=== PATIENT | male | born 1970 | race Hispanic/Latino ===

== ENCOUNTER 2021-08-24 16:16 | Emergency (ER) | payer SELFPAY ==
[2021-08-24 16:53] LABS: #Basophils 0.2 10x3/uL (0.0-0.2); #Eosinphils 0.1 10x3/uL (0.0-0.5); #Monocytes 0.6 10x3/uL (0.0-1.1); #Neutrophils 5.1 10x3/uL (1.5-8.4); %Eosinophils 1.2 % (0.0-6.0); %Lymphocytes 26.2 % (18.0-47.0); %Monocytes 7.5 % (0.0-10.0); %Neutrophils 62.6 % (40.0-75.0); Hemoglobin 8.9 g/dL (13.5-17.5); Mean Corpuscular HGB CONC 32.4 g/dL (32.0-36.0); Mean Corpuscular Hemoglobin 33.6 pg (27.0-33.0); Mean Corpuscular Volume 103.8 fl (81.2-95.1); Mean Platelet Volume 9.1 fl (7.4-10.4); Platelet Count 277 10x3/uL (150-450); RBC Distribution Width 15.5 % (11.5-14.5); Red Blood Cell (RBC) Count 2.65 10x6/uL (4.32-5.72); White Blood Cell (WBC) Count 8.1 10x3/uL (3.5-10.5)
[2021-08-24 17:06] LABS: ALT (SGPT) 30 U/L (8-55); AST (SGOT) 73 U/L (5-34); Albumin 3.1 g/dL (3.5-5.0); Alkaline Phosphatase 179 U/L (40-110); Anion Gap 15 mmol/L (10-20); BUN (Urea Nitrogen) 12 mg/dL (8.4-25.7); Bilirubin, Total 1.7 mg/dL (0.2-1.2); Calc. Creatinine Clearance 0 mL/min (70-130); Calcium 8.2 mg/dL (7.8-10.44); Carbon Dioxide 20 mmol/L (22-29); Chloride 109 mmol/L (98-107); Globulin 4.7 g/dL (2.4-3.5); Glucose 115 mg/dL (70-105); Potassium 4.4 mmol/L (3.5-5.1); Protein, Total 7.8 g/dL (6.0-8.3); Sodium 140 mmol/L (136-145)
== END 2021-08-24 19:24 | disposition home or self-care (01) ==
LOC: CSHERS 16:16
DX: R60.0 Localized edema (principal)
CPT/HCPCS: 71045; 80053; 83880; 85025

== ENCOUNTER 2021-09-13 20:19 | Inpatient (IN) | payer SELFPAY ==
[2021-09-13 20:58] LABS: #Basophils 0.2 10x3/uL (0.0-0.2); #Monocytes 1.2 10x3/uL (0.0-1.1); #Neutrophils 8.6 10x3/uL (1.5-8.4); %Basophils 1.7 % (0.0-2.0); %Eosinophils 0.1 % (0.0-6.0); %Monocytes 10.2 % (0.0-10.0); %Neutrophils 71.4 % (40.0-75.0); Hemoglobin 7.6 g/dL (13.5-17.5); Mean Corpuscular HGB CONC 33.3 g/dL (32.0-36.0); Mean Corpuscular Hemoglobin 31.1 pg (27.0-33.0); Mean Corpuscular Volume 93.4 fl (81.2-95.1); Mean Platelet Volume 10.5 fl (7.4-10.4); Platelet Count 245 10x3/uL (150-450); RBC Distribution Width 16.1 % (11.5-14.5); Red Blood Cell (RBC) Count 2.44 10x6/uL (4.32-5.72)
[2021-09-13] MEDS ORDERED: Ondansetron PF 4 MG/2 ML Vial ONE (21:01)
[2021-09-13 21:10] LABS: ALT (SGPT) 21 U/L (8-55); AST (SGOT) 57 U/L (5-34); Albumin 3.2 g/dL (3.5-5.0); Alkaline Phosphatase 88 U/L (40-110); Anion Gap 18 mmol/L (10-20); BUN (Urea Nitrogen) 61 mg/dL (8.4-25.7); Bilirubin, Total 1.7 mg/dL (0.2-1.2); Calc. Creatinine Clearance 0 mL/min (70-130); Calcium 9.1 mg/dL (7.8-10.44); Carbon Dioxide 22 mmol/L (22-29); Chloride 97 mmol/L (98-107); Estimated GFR 62; Globulin 4.4 g/dL (2.4-3.5); Glucose 125 mg/dL (70-105); Lipase 30 U/L (8-78); Potassium 5.2 mmol/L (3.5-5.1); Protein, Total 7.6 g/dL (6.0-8.3); Sodium 132 mmol/L (136-145)
[2021-09-13] MEDS ORDERED: Pantoprazole 40 MG VIAL ONE ×2 (22:25→22:52)
[2021-09-13 22:26] LABS: INR-International Normal Ratio 1.4; PTT 27.1 sec (22.0-33.0); Prothrombin Time 15.4 sec (9.5-12.1)
[2021-09-13] MEDS ORDERED: Ondansetron PF 4 MG/2 ML Vial IVP PRN (22:46)
[2021-09-13] MEDS ORDERED: Lorazepam 2 MG/ML VIAL SLOW IVP PRN (22:52)
[2021-09-13] MEDS ORDERED: Octreotide Acetate 1,250 MCG in Sodium Chloride 0.9% 250 ML 250 ML IVPB SCH (23:00)
[2021-09-13] MEDS ORDERED: Pantoprazole 80 MG in Sodium Chloride 0.9% 100 ML IVPB SCH (23:00)
[2021-09-13 23:31] LABS: Iron 61 ug/dL (65-175); Iron Binding Capacity, Total 299 mcg/dL (261-462)
[2021-09-13 23:32] LABS: Ferritin 67.04 ng/mL (22-322)
[2021-09-13] MEDS: Thiamine HCl 200 MG/2 ML VIAL SLOW IVP SCH (23:50)
[2021-09-13] MEDS: Sodium Chloride 0.9% 1,000 ML IV SCH (23:50)
[2021-09-14] MEDS: Acetaminophen 325 MG TAB PO PRN (00:01)
[2021-09-14] MEDS: cefTRIAXone\\ROCEPHIN 2 GM in Sodium Chloride 0.9% 100 ML IVPB SCH (00:13)
[2021-09-14 00:34] VITALS: BMI 26.6
[2021-09-14 07:01] LABS: Anion Gap 14 mmol/L (10-20); BUN (Urea Nitrogen) 60 mg/dL (8.4-25.7); Calc. Creatinine Clearance 79 mL/min (70-130); Carbon Dioxide 23 mmol/L (22-29); Chloride 103 mmol/L (98-107); Estimated GFR 68; Glucose 123 mg/dL (70-105); Sodium 135 mmol/L (136-145)
[2021-09-14 07:13] LABS: Hemoglobin 6.7 g/dL (13.5-17.5); MDiff Complete? YES; Mean Corpuscular HGB CONC 33.7 g/dL (32.0-36.0); Mean Corpuscular Hemoglobin 30.7 pg (27.0-33.0); Mean Corpuscular Volume 91.3 fl (81.2-95.1); Mean Platelet Volume 10.3 fl (7.4-10.4); Platelet Count 176 10x3/uL (150-450); RBC Distribution Width 17.5 % (11.5-14.5); Red Blood Cell (RBC) Count 2.18 10x6/uL (4.32-5.72); White Blood Cell (WBC) Count 11.8 10x3/uL (3.5-10.5)
[2021-09-14] MEDS ORDERED: Octreotide Acetate 1,250 MCG in Sodium Chloride 0.9% 250 ML 250 ML IVPB SCH (07:15)
[2021-09-14 07:16] LABS: Band 2 % (5-11); Lymphocytes 25 % (21-51); Monocytes 6 % (0-10); Neutrophil 66 % (42-75)
[2021-09-14 07:17] LABS: Platelet Morphology Comment Appears Adequate
[2021-09-14 07:18] LABS: RBC Morphology Normal
[2021-09-14 09:40] LABS: #Basophils 0.2 10x3/uL (0.0-0.2); #Eosinphils 0.2 10x3/uL (0.0-0.5); #Monocytes 1.1 10x3/uL (0.0-1.1); #Neutrophils 6.3 10x3/uL (1.5-8.4); %Basophils 1.5 % (0.0-2.0); %Eosinophils 1.5 % (0.0-6.0); %Lymphocytes 23.4 % (18.0-47.0); %Monocytes 11.1 % (0.0-10.0); %Neutrophils 62.1 % (40.0-75.0); Hemoglobin 6.2 g/dL (13.5-17.5); Mean Corpuscular HGB CONC 32.6 g/dL (32.0-36.0); Mean Corpuscular Hemoglobin 30.1 pg (27.0-33.0); Mean Corpuscular Volume 92.2 fl (81.2-95.1); Mean Platelet Volume 10.2 fl (7.4-10.4); Platelet Count 157 10x3/uL (150-450); RBC Distribution Width 17.6 % (11.5-14.5); Red Blood Cell (RBC) Count 2.06 10x6/uL (4.32-5.72); White Blood Cell (WBC) Count 10.1 10x3/uL (3.5-10.5)
[2021-09-14] MEDS ORDERED: Lorazepam 1 MG TAB PO PRN (12:39)
[2021-09-14] MEDS ORDERED: Ondansetron ODT 4 MG TAB PO PRN (12:39)
[2021-09-14] MEDS ORDERED: Electrolyte Replacement Protocol 1 EACH FS SCH (12:45)
[2021-09-14 13:37] LABS: SARS-CoV-2 NAA Rapid Test Not Detected (NotDetected)
[2021-09-14] MEDS: Sodium Chloride 0.9% 1,000 ML IV SCH (14:01)
[2021-09-14] MEDS ORDERED: PROPOFOL 20 ML ONE (14:19)
[2021-09-14] MEDS ORDERED: Lidocaine 1% PF 5 ML VIAL ONE (14:19)
[2021-09-14] MEDS ORDERED: Propofol 1,000 MG/100 ML VIAL IV ONE (14:30)
[2021-09-14] MEDS: Lorazepam 1 MG TAB PO SCH ×2 (16:16→19:59)
[2021-09-14 16:41] LABS: Mean Corpuscular HGB CONC 33.1 g/dL (32.0-36.0); Mean Corpuscular Hemoglobin 30.7 pg (27.0-33.0); Mean Corpuscular Volume 92.7 fl (81.2-95.1); Mean Platelet Volume 10.6 fl (7.4-10.4); Platelet Count 175 10x3/uL (150-450); RBC Distribution Width 17.4 % (11.5-14.5); Red Blood Cell (RBC) Count 2.61 10x6/uL (4.32-5.72)
[2021-09-14 16:42] LABS: MDiff Complete? YES; Manual Diff?? YES
[2021-09-14 17:50] LABS: Monocytes 9 % (0-10)
[2021-09-14 17:51] LABS: Eosinophils 3 % (0-10)
[2021-09-14 17:53] LABS: Neutrophil 60 % (42-75)
[2021-09-14 17:54] LABS: Lymphocytes 25 % (21-51); Reactive Lymphocytes 2 % (0-10)
[2021-09-14 17:55] LABS: Platelet Morphology Comment Appears Adequate
[2021-09-15] MEDS: Thiamine HCl 200 MG/2 ML VIAL SLOW IVP SCH ×2 (00:37→23:19)
[2021-09-15] MEDS: cefTRIAXone\\ROCEPHIN 2 GM in Sodium Chloride 0.9% 100 ML IVPB SCH ×2 (00:39→23:18)
[2021-09-15] MEDS: Lorazepam 1 MG TAB PO SCH ×4 (00:49→19:44)
[2021-09-15] MEDS: Sodium Chloride 0.9% 1,000 ML IV SCH ×2 (00:50→14:32)
[2021-09-15 01:44] LABS: Hemoglobin 8.4 g/dL (13.5-17.5); Mean Corpuscular HGB CONC 35.1 g/dL (32.0-36.0); Mean Corpuscular Hemoglobin 31.8 pg (27.0-33.0); Mean Corpuscular Volume 90.5 fl (81.2-95.1); Mean Platelet Volume 10.1 fl (7.4-10.4); Platelet Count 130 10x3/uL (150-450); RBC Distribution Width 16.9 % (11.5-14.5); Red Blood Cell (RBC) Count 2.64 10x6/uL (4.32-5.72); White Blood Cell (WBC) Count 6.2 10x3/uL (3.5-10.5)
[2021-09-15 02:03] LABS: MDiff Complete? YES
[2021-09-15 02:06] LABS: Band 3 % (5-11); Eosinophils 8 % (0-10); Lymphocytes 35 % (21-51); Monocytes 7 % (0-10); Neutrophil 47 % (42-75)
[2021-09-15 02:07] LABS: Platelet Morphology Comment Appears Adequate
[2021-09-15 05:01] LABS: Hemoglobin 8.4 g/dL (13.5-17.5)
[2021-09-15 05:40] LABS: Iron 142 ug/dL (65-175); Iron Binding Capacity, Total 240 mcg/dL (261-462); Magnesium 1.8 mg/dL (1.6-2.6); Phosphorus 2.7 mg/dL (2.3-4.7); Potassium 4.3 mmol/L (3.5-5.1)
[2021-09-15] MEDS ORDERED: Magnesium 2 GM/50 ML(in water) 2 GM in Premix Bag 1 BAG IVPB SCH (06:00)
[2021-09-15] MEDS: Multivit, Therapeutic 1 TAB PO SCH (08:33)
[2021-09-15] MEDS: Folic Acid 1 MG TAB PO SCH (08:33)
[2021-09-15] MEDS ORDERED: Lorazepam 1 MG TAB PO PRN (12:39)
[2021-09-15 13:19] LABS: HBCM Index 0.14 S/CO (0-0.79); HBSAg Index 0.26 S/CO (0-0.99); Hep A IgM AB Non-Reactive (NonReactive); Hep A IgM S/CO 0.31 S/CO (0-0.79); Hep B Surf Ag Non-Reactive S/CO (NonReactive); Hep C IgG Ab Non-Reactive (NonReactive); Hepatitis B Core IgM Abs Non-Reactive (NonReactive)
[2021-09-15] MEDS ORDERED: GoLYTELY 4,000 ml Bottle PO SCH (15:30)
[2021-09-15 16:38] LABS: Hemoglobin 8.9 g/dL (13.5-17.5)
[2021-09-16] MEDS: Lorazepam 1 MG TAB PO SCH ×3 (00:50→05:55)
[2021-09-16] MEDS: Sodium Chloride 0.9% 1,000 ML IV SCH (04:47)
[2021-09-16] MEDS: Acetaminophen 325 MG TAB PO PRN (05:55)
[2021-09-16 07:19] LABS: Hep C Index 0.15 S/CO (0-0.79)
[2021-09-16] MEDS: Multivit, Therapeutic 1 TAB PO SCH (08:30)
[2021-09-16] MEDS: Folic Acid 1 MG TAB PO SCH (08:30)
[2021-09-16] MEDS ORDERED: Lorazepam 1 MG TAB PO PRN (12:39)
[2021-09-16] MEDS: Lorazepam 0.5 MG TAB PO SCH ×2 (12:45→16:31)
[2021-09-16] MEDS ORDERED: PROPOFOL 20 ML ONE ×2 (13:22→14:06)
[2021-09-16 17:17] VITALS: BP 137/65; TEMP 97.6
[2021-09-17] MEDS ORDERED: Lorazepam 0.5 MG TAB PO PRN (12:39)
[2021-09-19 15:17] LABS: ANA Symphony (Qualitative) Negative (Negative); ANA Symphony (Quantitative) 0.5 Ratio (< 0.7 Negative); EliA Vaculitis New Method **** NEW METHOD ****; Mitochondrial Ab 1.4 U/mL (<4 Negative); dsDNA IgG Antibody 1.7 IU/mL (<10 Negative)
== END 2021-09-16 19:25 | disposition home or self-care (01) | DRG 442 ==
LOC: CSHERS 20:19 → CSHTELE 23:26
PROVIDERS: ADMIT Student in an Organized Health Care Education/Training Program; ATTEND Internal Medicine
PROC: 0DB78ZX Excision of Stomach, Pylorus, Via Natural or Artificial Opening Endoscopic, Diagnostic (ICD-10-PCS; principal; 2021-09-14)
PROC: 30233N1 Transfusion of Nonautologous Red Blood Cells into Peripheral Vein, Percutaneous Approach (ICD-10-PCS; 2021-09-14)
PROC: 0DJD8ZZ Inspection of Lower Intestinal Tract, Via Natural or Artificial Opening Endoscopic (ICD-10-PCS; 2021-09-16)
DX: K76.6 Portal hypertension (principal); D62 Acute posthemorrhagic anemia; E87.1 Hypo-osmolality and hyponatremia; N17.9 Acute kidney failure, unspecified; R65.10 Systemic inflammatory response syndrome (SIRS) of non-infectious origin without acute organ dysfunction; K92.0 Hematemesis; E87.5 Hyperkalemia; F10.20 Alcohol dependence, uncomplicated; K31.89 Other diseases of stomach and duodenum; E88.09 Other disorders of plasma-protein metabolism, not elsewhere classified; Z20.822 Contact with and (suspected) exposure to COVID-19; Z87.891 Personal history of nicotine dependence
CPT/HCPCS: 36415; 36430; 71045; 76700; 80048; 80053; 80074; 82105; 82390; 82607; 82728; 82746; 83516; 83540; 83550; 83690; 83735; 83880; 84100; 84132; 84484; 85014; 85018; 85025; 85610; 85730; 86015; 86038; 86225; 86850; 86900; 86901; 88305; 88342; 93005; 93306; 96374; 96375; 96376; C9113; J0696; J2354; J2405; J2704; J3411; J3475; J3490; J7050; P9016; U0002

== ENCOUNTER 2021-12-26 10:49 | Emergency (ER) | payer SELFPAY | END 2021-12-26 11:57 | disposition home or self-care (01) | LOC: CSHERS 10:49 | DX: S83.92XA Sprain of unspecified site of left knee, initial encounter (principal); W18.30XA Fall on same level, unspecified, initial encounter ==

== ENCOUNTER 2022-03-14 07:27 | Emergency (ER) | payer SELFPAY | END 2022-03-14 08:02 | disposition home or self-care (01) | LOC: CSHERS 07:27 | DX: M25.562 Pain in left knee (principal); M25.462 Effusion, left knee | CPT/HCPCS: 99283 ==

== ENCOUNTER 2022-10-06 07:41 | Inpatient (IN) | payer SELFPAY ==
[2022-10-06] MEDS ORDERED: Ondansetron PF 4 MG/2 ML Vial ONE ×2 (08:40→08:50)
[2022-10-06] MEDS ORDERED: Pantoprazole 40 MG VIAL ONE (08:40)
[2022-10-06] MEDS ORDERED: Famotidine/PF 20 mg/2ml Vial ONE (08:41)
[2022-10-06] MEDS ORDERED: Octreotide Acetate 50 MCG/ML AMP ONE (08:46)
[2022-10-06] MEDS ORDERED: Iopamidol 300 61% 100 ML VIAL FS ONE (09:11)
[2022-10-06 09:25] LABS: Hemoglobin 8.3 g/dL (13.5-17.5); Mean Corpuscular HGB CONC 31.8 g/dL (32.0-36.0); Mean Corpuscular Hemoglobin 25.2 pg (27.0-33.0); Mean Corpuscular Volume 79.1 fl (81.2-95.1); Mean Platelet Volume 10.5 fl (7.4-10.4); Platelet Count 175 10x3/uL (150-450); RBC Distribution Width 19.6 % (11.5-14.5); White Blood Cell (WBC) Count 4.4 10x3/uL (3.5-10.5)
[2022-10-06 09:27] LABS: ALT (SGPT) 26 U/L (8-55); AST (SGOT) 70 U/L (5-34); Albumin 3.6 g/dL (3.5-5.0); Alkaline Phosphatase 67 U/L (40-110); Anion Gap 17 mmol/L (10-20); BUN (Urea Nitrogen) 29 mg/dL (8.4-25.7); Bilirubin, Total 1.4 mg/dL (0.2-1.2); Calc. Creatinine Clearance 0 mL/min (70-130); Calcium 8.2 mg/dL (7.8-10.44); Carbon Dioxide 21 mmol/L (22-29); Chloride 100 mmol/L (98-107); Estimated GFR 105; Globulin 3.9 g/dL (2.4-3.5); Glucose 111 mg/dL (70-105); Lipase 146 U/L (8-78); Potassium 4.4 mmol/L (3.5-5.1); Protein, Total 7.5 g/dL (6.0-8.3); Sodium 134 mmol/L (136-145)
[2022-10-06 09:29] LABS: MDiff Complete? YES
[2022-10-06] MEDS ORDERED: Promethazine HCl 25 MG, Admixture Fee 1 EACH in Sodium Chloride 0.9% 50 ML IVPB SCH (09:30)
[2022-10-06 09:58] LABS: Eosinophils 3 % (0-10); Lymphocytes 28 % (21-51); Monocytes 16 % (0-10); Neutrophil 50 % (42-75)
[2022-10-06 10:00] LABS: Hypochromia SLIGHT = 6-15 cells (100X) (0-5/hpf); Platelet Adequacy Comment Appears Adequate
[2022-10-06 10:01] LABS: Microcytosis SLIGHT = 6-15 cells (100X) (0-5/hpf)
[2022-10-06] MEDS ORDERED: Acetaminophen 650 MG Suppository PR PRN (11:32)
[2022-10-06] MEDS ORDERED: Ondansetron PF 4 MG/2 ML Vial IVP PRN (11:32)
[2022-10-06] MEDS ORDERED: Ondansetron ODT 4 MG TAB PO PRN (11:32)
[2022-10-06] MEDS ORDERED: Acetaminophen 325 MG TAB PO PRN (11:32)
[2022-10-06] MEDS ORDERED: Octreotide Acetate 1,250 MCG in Sodium Chloride 0.9% 250 ML 250 ML IVPB SCH (11:45)
[2022-10-06 11:50] LABS: INR-International Normal Ratio 1.4; PTT 30.2 sec (22.0-33.0); Prothrombin Time 15.2 sec (9.5-12.1)
[2022-10-06] MEDS ORDERED: Lorazepam 1 MG TAB PO PRN (12:24)
[2022-10-06] MEDS ORDERED: Lorazepam 2 MG/ML VIAL IM PRN (12:24)
[2022-10-06] MEDS ORDERED: Electrolyte Replacement Protocol 1 EACH FS SCH (12:30)
[2022-10-06] MEDS: Sodium Chloride 0.9% 1,000 ML IV SCH ×2 (13:00→18:10)
[2022-10-06] MEDS ORDERED: Thiamine HCl 200 MG/2 ML VIAL ONE (13:26)
[2022-10-06] MEDS: Thiamine HCl 200 MG/2 ML VIAL SLOW IVP SCH (13:30)
[2022-10-06 14:51] LABS: Hemoglobin 7.8 g/dL (13.5-17.5)
[2022-10-06] MEDS ORDERED: PROPOFOL 20 ML ONE (15:31)
[2022-10-06] MEDS ORDERED: Succinylcholine 200 MG/10 ml SYRINGE FS ONE (15:31)
[2022-10-06] MEDS ORDERED: PHENYLEPHRINE-NS 100 MCG/ML 10 ML SYRINGE ONE (16:05)
[2022-10-06 17:29] VITALS: BMI 27.7
[2022-10-06 19:54] LABS: Hemoglobin 8.4 g/dL (13.5-17.5)
[2022-10-06] MEDS: Pantoprazole 80 MG, Admixture Fee 1 EACH in Sodium Chloride 0.9% 100 ML IVPB SCH (20:29)
[2022-10-07 02:38] LABS: #Basophils 0.1 10x3/uL (0.0-0.2); #Eosinphils 0.2 10x3/uL (0.0-0.5); #Monocytes 0.7 10x3/uL (0.0-1.1); #Neutrophils 3.6 10x3/uL (1.5-8.4); %Basophils 1.8 % (0.0-2.0); %Eosinophils 2.4 % (0.0-6.0); %Lymphocytes 26.5 % (18.0-47.0); %Monocytes 11.6 % (0.0-10.0); %Neutrophils 57.5 % (40.0-75.0); Hemoglobin 7.7 g/dL (13.5-17.5); Mean Corpuscular HGB CONC 32.2 g/dL (32.0-36.0); Mean Corpuscular Hemoglobin 25.9 pg (27.0-33.0); Mean Corpuscular Volume 80.5 fl (81.2-95.1); Mean Platelet Volume 9.7 fl (7.4-10.4); Platelet Count 121 10x3/uL (150-450); RBC Distribution Width 18.8 % (11.5-14.5); Red Blood Cell (RBC) Count 2.97 10x6/uL (4.32-5.72); White Blood Cell (WBC) Count 6.2 10x3/uL (3.5-10.5)
[2022-10-07 02:48] LABS: Anion Gap 14 mmol/L (10-20); BUN (Urea Nitrogen) 26 mg/dL (8.4-25.7); Calc. Creatinine Clearance 113 mL/min (70-130); Calcium 7.8 mg/dL (7.8-10.44); Carbon Dioxide 22 mmol/L (22-29); Chloride 108 mmol/L (98-107); Estimated GFR 100; Glucose 118 mg/dL (70-105); Potassium 4.2 mmol/L (3.5-5.1); Sodium 140 mmol/L (136-145)
[2022-10-07] MEDS: Sodium Chloride 0.9% 1,000 ML IV SCH ×2 (04:57→21:07)
[2022-10-07] MEDS: Pantoprazole 80 MG, Admixture Fee 1 EACH in Sodium Chloride 0.9% 100 ML IVPB SCH (05:24)
[2022-10-07] MEDS ORDERED: Metoclopramide HCl 10 MG/2 ML VIAL IVP PRN (07:39)
[2022-10-07 08:23] LABS: Hemoglobin 7.7 g/dL (13.5-17.5)
[2022-10-07] MEDS: Folic Acid 1 MG TAB PO SCH (08:34)
[2022-10-07] MEDS: Thiamine HCl 200 MG/2 ML VIAL SLOW IVP SCH (11:20)
[2022-10-07] MEDS ORDERED: Lorazepam 1 MG TAB PO PRN (12:24)
[2022-10-07 14:28] LABS: Hemoglobin 7.8 g/dL (13.5-17.5)
[2022-10-07 20:42] LABS: Hemoglobin 7.8 g/dL (13.5-17.5)
[2022-10-07] MEDS: Pantoprazole 40 MG VIAL IVP SCH (21:08)
[2022-10-08 03:52] LABS: Anion Gap 14 mmol/L (10-20); BUN (Urea Nitrogen) 18 mg/dL (8.4-25.7); Calc. Creatinine Clearance 120 mL/min (70-130); Calcium 7.7 mg/dL (7.8-10.44); Carbon Dioxide 20 mmol/L (22-29); Chloride 106 mmol/L (98-107); Estimated GFR 104; Glucose 91 mg/dL (70-105); Potassium 3.2 mmol/L (3.5-5.1); Sodium 137 mmol/L (136-145)
[2022-10-08 03:57] LABS: #Basophils 0.1 10x3/uL (0.0-0.2); #Eosinphils 0.5 10x3/uL (0.0-0.5); #Monocytes 0.6 10x3/uL (0.0-1.1); #Neutrophils 2.8 10x3/uL (1.5-8.4); %Basophils 1.6 % (0.0-2.0); %Eosinophils 8.8 % (0.0-6.0); %Lymphocytes 22.5 % (18.0-47.0); %Monocytes 11.1 % (0.0-10.0); %Neutrophils 55.4 % (40.0-75.0); Hemoglobin 7.2 g/dL (13.5-17.5); Mean Corpuscular HGB CONC 31.4 g/dL (32.0-36.0); Mean Corpuscular Hemoglobin 26.1 pg (27.0-33.0); Mean Platelet Volume 10.6 fl (7.4-10.4); Platelet Count 107 10x3/uL (150-450); RBC Distribution Width 18.9 % (11.5-14.5); Red Blood Cell (RBC) Count 2.76 10x6/uL (4.32-5.72); White Blood Cell (WBC) Count 5.1 10x3/uL (3.5-10.5)
[2022-10-08] MEDS: Sodium Chloride 0.9% 1,000 ML IV SCH (04:00)
[2022-10-08] MEDS: Folic Acid 1 MG TAB PO SCH (08:00)
[2022-10-08] MEDS: Pantoprazole 40 MG VIAL IVP SCH (08:00)
[2022-10-08] MEDS ORDERED: Potassium Chloride 20 MEQ TAB PO SCH ×2 (08:00→09:00)
[2022-10-08] MEDS ORDERED: Lorazepam 1 MG TAB PO PRN (12:24)
[2022-10-08 13:07] VITALS: BP 158/78; TEMP 98.2
[2022-10-08] MEDS: Thiamine HCl 200 MG/2 ML VIAL SLOW IVP SCH (13:08)
[2022-10-09] MEDS ORDERED: Lorazepam 0.5 MG TAB PO PRN (12:24)
[2022-10-09] MEDS ORDERED: Thiamine 100 MG TAB PO SCH (12:30)
== END 2022-10-08 13:30 | disposition home or self-care (01) | DRG 369 ==
LOC: CSHERS 07:41 → CSHERHOLD 11:29 → CSHICU 16:04 → CSHTELE 10-08 09:07
PROVIDERS: ADMIT Family Medicine; ATTEND Internal Medicine
PROC: 30233N1 Transfusion of Nonautologous Red Blood Cells into Peripheral Vein, Percutaneous Approach (ICD-10-PCS; principal; 2022-10-06)
PROC: 0W3P8ZZ Control Bleeding in Gastrointestinal Tract, Via Natural or Artificial Opening Endoscopic (ICD-10-PCS; 2022-10-06)
DX: K22.6 Gastro-esophageal laceration-hemorrhage syndrome (principal); K76.6 Portal hypertension; N28.9 Disorder of kidney and ureter, unspecified; D64.9 Anemia, unspecified; K70.30 Alcoholic cirrhosis of liver without ascites; D69.6 Thrombocytopenia, unspecified; F10.10 Alcohol abuse, uncomplicated; Z79.899 Other long term (current) drug therapy; F17.210 Nicotine dependence, cigarettes, uncomplicated; F41.9 Anxiety disorder, unspecified; K31.89 Other diseases of stomach and duodenum; I85.10 Secondary esophageal varices without bleeding
CPT/HCPCS: 36415; 36416; 36430; 74177; 80048; 80053; 83690; 85025; 85610; 85730; 86850; 86900; 86901; 96365; 96366; 96368; 96375; 96376; C9113; J2354; J2405; J2550; J2704; J3411; J3490; J7050; P9016; Q9967; S0028

== ENCOUNTER 2023-07-26 21:53 | Inpatient (IN) | payer BC, OTHER, SELFPAY ==
[2023-07-26] MEDS ORDERED: Ondansetron PF 4 MG/2 ML Vial ONE (22:29)
[2023-07-26 23:05] LABS: #Basophils 0.12 10x3/uL (0.0-0.2); #Monocytes 0.58 10x3/uL (0.0-1.1); #Neutrophils 1.72 10x3/uL (1.5-8.4); %Basophils 2.9 % (0.0-2.0); %Eosinophils 4.9 % (0.0-6.0); %Lymphocytes 35.4 % (18.0-47.0); %Monocytes 14.3 % (0.0-10.0); %Neutrophils 42.3 % (40.0-75.0); ALT (SGPT) 72 U/L (8-55); AST (SGOT) 174 U/L (5-34); Albumin 4.1 g/dL (3.5-5.0); Alkaline Phosphatase 87 U/L (40-110); Anion Gap 22 mmol/L (10-20); BUN (Urea Nitrogen) 6 mg/dL (8.4-25.7); Bilirubin, Total 3.2 mg/dL (0.2-1.2); Calc. Creatinine Clearance 0 mL/min (70-130); Calcium 9.2 mg/dL (7.8-10.44); Carbon Dioxide 19 mmol/L (22-29); Chloride 98 mmol/L (98-107); Estimated GFR 105; Globulin 4.1 g/dL (2.4-3.5); Glucose 74 mg/dL (70-105); Hematocrit 40.1 % (38.8-50.0); Lipase 42 U/L (8-78); Mean Corpuscular HGB CONC 34.9 g/dL (32.0-36.0); Mean Corpuscular Hemoglobin 29.3 pg (27.0-33.0); Mean Corpuscular Volume 83.9 fl (81.2-95.1); Mean Platelet Volume 10.1 fl (7.4-10.4); Platelet Count 67 10x3/uL (150-450); Potassium 3.6 mmol/L (3.5-5.1); Protein, Total 8.2 g/dL (6.0-8.3); RBC Distribution Width 18.4 % (11.5-14.5); Red Blood Cell (RBC) Count 4.78 10x6/uL (4.32-5.72); Sodium 135 mmol/L (136-145); White Blood Cell (WBC) Count 4.1 10x3/uL (3.5-10.5)
[2023-07-26 23:22] LABS: Anisocytosis SLIGHT = 6-15 cells (100X) (0-5/hpf); Microcytosis SLIGHT = 6-15 cells (100X) (0-5/hpf); Ovalocytes SLIGHT = 2-5 cells (100X) (0-1/hpf); Platelet Adequacy Comment Appears Decreased
[2023-07-27] MEDS ORDERED: dilTIAZem 25 MG/5 ML VIAL ONE (00:19)
[2023-07-27 00:36] LABS: Actual Bicarbonate (HCO3v) 18.9 mEq/L (22-28); Analyzer IN Cardio CS ER; Base Excess -3.8 mEq/L (-2 - +2); Calcium, Ionized (venous) 1.02 mmol/L (1.16-1.32); Chloride (VBG) 100 mmol/L (98-106); Critical Notified By: CP.PH; Hematocrit-VBG 42 % (42.0-52.0); Hemoglobin (Hb) 14.4 g/dL (13.1-17.2); Potassium (VBG) 3.88 mmol/L (3.70-5.30); Puncture Site Other Site; Sodium 137 mmol/L (133-146)
[2023-07-27] MEDS ORDERED: Ondansetron PF 4 MG/2 ML Vial IVP PRN (00:55)
[2023-07-27] MEDS ORDERED: Ondansetron ODT 4 MG TAB PO PRN ×2 (00:55→00:56)
[2023-07-27] MEDS ORDERED: HYDROcodone/Acetaminophen 5/325 mg Tablet PO PRN (00:55)
[2023-07-27 00:56] LABS: Bilirubin Neg (Negative); Blood, Urine Negative (Negative); Clarity Slightly Cloudy (Clear); Glucose, Urine (Dipstick) Normal (Negative); Ketone, Urine 50 mg/dL (Negative); Leukocyte Negative (Negative); Nitrite Negative (Negative); Protein, Urine (Dipstick) Negative (Neg-Trace)
[2023-07-27] MEDS ORDERED: Lorazepam 2 MG/ML VIAL IM PRN (00:56)
[2023-07-27] MEDS ORDERED: Electrolyte Replacement Protocol 1 EACH FS PRN (01:00)
[2023-07-27] MEDS ORDERED: Metoprolol Tartrate 5 MG (5 mL) VIAL IVP PRN (01:09)
[2023-07-27 01:16] LABS: INR-International Normal Ratio 1.2; PTT 30.6 sec (22.0-33.0); Prothrombin Time 13.2 sec (9.5-12.1)
[2023-07-27 01:20] LABS: Bacteria/HPF 1+ HPF (None Seen); CAUTI Indications for Culture Fever or rigors; RBC/HPF None Seen HPF (0-3); Squamous Epithelial None Seen HPF (0-3); WBC/HPF None Seen HPF (0-3)
[2023-07-27 01:20] LABS: Alcohol 184.4 mg/dL (Less than 10); Magnesium 1.7 mg/dL (1.6-2.6)
[2023-07-27 01:21] LABS: Urine Culture Reflex No No
[2023-07-27] MEDS ORDERED: Metoprolol Tartrate 5 MG (5 mL) VIAL ONE (01:28)
[2023-07-27] MEDS ORDERED: Sodium Chloride 0.9% 1,000 ML IV SCH (01:30)
[2023-07-27 01:36] LABS: Phosphorus 2.9 mg/dL (2.3-4.7)
[2023-07-27 01:40] LABS: Lactic Acid 1.7 mmol/L (0.5-2.2)
[2023-07-27 01:53] LABS: Troponin I Less than 0.010 ng/mL (< 0.028)
[2023-07-27 03:06] VITALS: BMI 27.5
[2023-07-27] MEDS: Thiamine HCl 200 MG/2 ML VIAL SLOW IVP SCH (03:16)
[2023-07-27] MEDS: Magnesium 2 GM/50 ML(in water) 2 GM in Premix 1 BAG IVPB SCH ×2 (03:17→09:37)
[2023-07-27] MEDS: Pantoprazole 40 MG VIAL IVP SCH (03:17)
[2023-07-27] MEDS: Lorazepam 1 MG TAB PO SCH (03:17)
[2023-07-27] MEDS: dilTIAZem 125 MG in Sodium Chloride 0.9% 100 ML IVPB SCH (04:49)
[2023-07-27 05:03] LABS: Amphetamine Not Detected (NotDetected); Barbiturates Screen Not Detected (NotDetected); Benzodiazepine Screen Not Detected (NotDetected); Cocaine Metabolite Screen Not Detected (NotDetected); Methadone Not Detected (NotDetected); Methamphetamine Not Detected (NotDetected); Opiate Screen Not Detected (NotDetected); Oxycodone Screen Not Detected (NotDetected); Phencyclidine (PCP) Not Detected (NotDetected); THC/Cannabinoid Screen Not Detected (NotDetected); Tricyclic Screen Not Detected (NotDetected)
[2023-07-27 05:05] LABS: ALT (SGPT) 70 U/L (8-55); AST (SGOT) 193 U/L (5-34); Albumin 3.6 g/dL (3.5-5.0); Alkaline Phosphatase 82 U/L (40-110); Anion Gap 20 mmol/L (10-20); BUN (Urea Nitrogen) 7 mg/dL (8.4-25.7); Bilirubin, Total 3.4 mg/dL (0.2-1.2); Calc. Creatinine Clearance 136 mL/min (70-130); Calcium 8.4 mg/dL (7.8-10.44); Carbon Dioxide 17 mmol/L (22-29); Chloride 101 mmol/L (98-107); Estimated GFR 108; Globulin 3.9 g/dL (2.4-3.5); Glucose 76 mg/dL (70-105); Potassium 3.3 mmol/L (3.5-5.1); Protein, Total 7.5 g/dL (6.0-8.3); Sodium 135 mmol/L (136-145)
[2023-07-27] MEDS: Multivitamins, Adult 10 ML, Folic Acid 1 MG, Thiamine HCl 100 MG, Admixture Fee 1 EACH ... IV SCH (05:14)
[2023-07-27 05:16] LABS: #Eosinphils 0.12 10x3/uL (0.0-0.5); #Monocytes 0.48 10x3/uL (0.0-1.1); #Neutrophils 2.05 10x3/uL (1.5-8.4); %Basophils 2.8 % (0.0-2.0); %Eosinophils 3.4 % (0.0-6.0); %Lymphocytes 22.5 % (18.0-47.0); %Monocytes 13.5 % (0.0-10.0); %Neutrophils 57.5 % (40.0-75.0); Hematocrit 42.3 % (38.8-50.0); Hemoglobin 14.3 g/dL (13.5-17.5); Mean Corpuscular HGB CONC 33.8 g/dL (32.0-36.0); Mean Corpuscular Hemoglobin 28.8 pg (27.0-33.0); Mean Corpuscular Volume 85.1 fl (81.2-95.1); Mean Platelet Volume 10.5 fl (7.4-10.4); Platelet Count 60 10x3/uL (150-450); RBC Distribution Width 19.1 % (11.5-14.5); Red Blood Cell (RBC) Count 4.97 10x6/uL (4.32-5.72); White Blood Cell (WBC) Count 3.6 10x3/uL (3.5-10.5)
[2023-07-27 07:03] LABS: Troponin I 0.012 ng/mL (< 0.028)
[2023-07-27] MEDS ORDERED: Electrolyte Replacement Protocol 1 EACH FS SCH (07:45)
[2023-07-27] MEDS: Potassium Chloride 20 MEQ TAB PO SCH (09:37)
[2023-07-27] MEDS: Folic Acid 1 MG TAB PO SCH (09:37)
[2023-07-27] MEDS: Multivit, Therapeutic 1 TAB PO SCH (09:37)
[2023-07-27 11:41] VITALS: BMI 27.5
[2023-07-27] MEDS: Metoprolol Tartrate 25 MG TAB PO SCH ×2 (13:03→20:21)
[2023-07-27] MEDS: Lorazepam 1 MG TAB PO PRN (16:48)
[2023-07-27] MEDS ORDERED: Dexmedetomidine In 0.9 % NaCl 100 ML IVPB SCH (19:00)
[2023-07-27] MEDS: chlordiazePOXIDE HCl 25 MG CAP PO SCH (20:21)
[2023-07-27] MEDS: Diazepam 10 MG/2 ML SYRINGE IVP SCH (20:21)
[2023-07-27] MEDS ORDERED: chlordiazePOXIDE HCl 25 MG CAP PO SCH (21:00)
[2023-07-27] MEDS: Diazepam 5 MG TAB PO SCH (21:23)
[2023-07-27] MEDS: Acetaminophen 325 MG TAB PO PRN (22:07)
[2023-07-28] MEDS: Ketorolac Tromethamine 10 MG TAB PO SCH (00:05)
[2023-07-28] MEDS: Lorazepam 1 MG TAB PO PRN (01:57)
[2023-07-28 04:10] LABS: Anion Gap 14 mmol/L (10-20); BUN (Urea Nitrogen) 10 mg/dL (8.4-25.7); Calc. Creatinine Clearance 125 mL/min (70-130); Calcium 8.4 mg/dL (7.8-10.44); Carbon Dioxide 21 mmol/L (22-29); Chloride 100 mmol/L (98-107); Estimated GFR 105; Glucose 96 mg/dL (70-105); Potassium 3.7 mmol/L (3.5-5.1); Sodium 131 mmol/L (136-145)
[2023-07-28 04:25] LABS: ALT (SGPT) 62 U/L (8-55); AST (SGOT) 130 U/L (5-34); Albumin 3.4 g/dL (3.5-5.0); Alkaline Phosphatase 82 U/L (40-110); Bilirubin, Direct 1.8 mg/dL (0.1-0.3); Bilirubin, Total 3.8 mg/dL (0.2-1.2); CK (CPK) 95 U/L (30-200); Protein, Total 6.9 g/dL (6.0-8.3)
[2023-07-28] MEDS: Lorazepam 2 MG/ML VIAL SLOW IVP SCH (05:25)
[2023-07-28] MEDS: Magnesium 2 GM/50 ML(in water) 2 GM in Premix 1 BAG IVPB SCH (07:38)
[2023-07-28 09:00] LABS: ALT (SGPT) 71 U/L (8-55); AST (SGOT) 138 U/L (5-34); Albumin 3.9 g/dL (3.5-5.0); Alkaline Phosphatase 87 U/L (40-110); Anion Gap 15 mmol/L (10-20); BUN (Urea Nitrogen) 8 mg/dL (8.4-25.7); Bilirubin, Total 4.6 mg/dL (0.2-1.2); Calc. Creatinine Clearance 118 mL/min (70-130); Calcium 8.9 mg/dL (7.8-10.44); Carbon Dioxide 20 mmol/L (22-29); Chloride 98 mmol/L (98-107); Estimated GFR 103; Globulin 4.1 g/dL (2.4-3.5); Glucose 129 mg/dL (70-105); Potassium 3.6 mmol/L (3.5-5.1); Sodium 129 mmol/L (136-145)
[2023-07-28] MEDS ORDERED: chlordiazePOXIDE HCl 25 MG CAP PO SCH (09:00)
[2023-07-28 09:08] LABS: #Basophils 0.08 10x3/uL (0.0-0.2); #Eosinphils 0.28 10x3/uL (0.0-0.5); #Monocytes 0.69 10x3/uL (0.0-1.1); #Neutrophils 2.66 10x3/uL (1.5-8.4); %Basophils 1.5 % (0.0-2.0); %Eosinophils 5.4 % (0.0-6.0); %Lymphocytes 28.6 % (18.0-47.0); %Monocytes 13.2 % (0.0-10.0); %Neutrophils 51.1 % (40.0-75.0); Hematocrit 42.6 % (38.8-50.0); Hemoglobin 14.8 g/dL (13.5-17.5); Mean Corpuscular HGB CONC 34.7 g/dL (32.0-36.0); Mean Corpuscular Hemoglobin 29.2 pg (27.0-33.0); Mean Corpuscular Volume 84.2 fl (81.2-95.1); Platelet Count 72 10x3/uL (150-450); RBC Distribution Width 18.7 % (11.5-14.5); Red Blood Cell (RBC) Count 5.06 10x6/uL (4.32-5.72); White Blood Cell (WBC) Count 5.2 10x3/uL (3.5-10.5)
[2023-07-28 09:10] LABS: Actual Bicarbonate (HCO3v) 17.4 mEq/L (22-28); Analyzer IN Cardio CS ER; Base Excess -4.5 mEq/L (-2 - +2); Calcium, Ionized (venous) 1.07 mmol/L (1.16-1.32); Chloride (VBG) 97 mmol/L (98-106); Hematocrit-VBG 45 % (42.0-52.0); Hemoglobin (Hb) 15.3 g/dL (13.1-17.2); Potassium (VBG) 3.68 mmol/L (3.70-5.30); Puncture Site Other Site; RapidComm Collect By lab tech; Sodium 131 mmol/L (133-146); pH (venous) 7.456 (7.32-7.43)
[2023-07-28 09:42] LABS: Anisocytosis SLIGHT = 6-15 cells (100X) (0-5/hpf); Large Platelets SLIGHT (None Seen); Platelet Adequacy Comment Appears Decreased; Polychromasia SLIGHT = 2-3 cells (100X) (0-2/hpf)
[2023-07-28] MEDS: Lorazepam 2 MG/ML VIAL SLOW IVP PRN ×2 (10:10→20:37)
[2023-07-28] MEDS: Thiamine HCl 500 MG, Admixture Fee 1 EACH in Sodium Chloride 0.9% 50 ML IVPB SCH (10:22)
[2023-07-28] MEDS: Lactulose 20 GM (30 mL) UDCUP PO SCH (12:21)
[2023-07-28] MEDS: chlordiazePOXIDE HCl 25 MG CAP PO SCH ×2 (13:37→22:50)
[2023-07-28] MEDS ORDERED: Lorazepam 1 MG TAB PO PRN (17:48)
[2023-07-28] MEDS: hydrOXYzine 25 MG TAB PO PRN (19:41)
[2023-07-28] MEDS: QUEtiapine 25 MG TAB PO SCH (19:41)
[2023-07-28] MEDS: Dexmedetomidine In 0.9 % NaCl 100 ML IVPB SCH (20:44)
[2023-07-28] MEDS: Potassium Chloride 20 MEQ in Premix 1 BAG IVPB SCH (21:36)
[2023-07-29] MEDS ORDERED: Lorazepam 1 MG TAB PO PRN (00:57)
[2023-07-29] MEDS ORDERED: Lorazepam 0.5 MG TAB PO SCH (03:00)
[2023-07-29 03:49] LABS: Anion Gap 11 mmol/L (10-20); BUN (Urea Nitrogen) 7 mg/dL (8.4-25.7); Calc. Creatinine Clearance 129 mL/min (70-130); Calcium 8.6 mg/dL (7.8-10.44); Carbon Dioxide 22 mmol/L (22-29); Chloride 104 mmol/L (98-107); Estimated GFR 106; Glucose 115 mg/dL (70-105); Sodium 133 mmol/L (136-145)
[2023-07-29 03:52] LABS: ALT (SGPT) 61 U/L (8-55); AST (SGOT) 109 U/L (5-34); Albumin 3.3 g/dL (3.5-5.0); Alkaline Phosphatase 69 U/L (40-110); Bilirubin, Direct 1.8 mg/dL (0.1-0.3); Bilirubin, Total 3.6 mg/dL (0.2-1.2); Protein, Total 6.7 g/dL (6.0-8.3)
[2023-07-29] MEDS: chlordiazePOXIDE HCl 25 MG CAP PO SCH (06:31)
[2023-07-29] MEDS ORDERED: Lorazepam 2 MG/ML VIAL SLOW IVP PRN (08:00)
[2023-07-29] MEDS ORDERED: Metoprolol Tartrate 25 MG TAB PO SCH ×2 (08:53→09:00)
[2023-07-29] MEDS: Metoprolol Tartrate 25 MG TAB PO SCH ×2 (09:23→20:11)
[2023-07-29] MEDS: Lactulose 20 GM (30 mL) UDCUP PO SCH (10:02)
[2023-07-29] MEDS: Albumin 25% 25 GM (100 mL) BOT IVPB SCH (12:09)
[2023-07-29] MEDS ORDERED: chlordiazePOXIDE HCl 25 MG CAP PO SCH (14:00)
[2023-07-29] MEDS ORDERED: QUEtiapine 25 MG TAB PO SCH (21:00)
[2023-07-30] MEDS ORDERED: Lorazepam 0.5 MG TAB PO PRN (00:57)
[2023-07-30] MEDS: Lorazepam 2 MG/ML VIAL SLOW IVP PRN (04:14)
[2023-07-30 04:17] LABS: Anion Gap 14 mmol/L (10-20); BUN (Urea Nitrogen) 7 mg/dL (8.4-25.7); Calc. Creatinine Clearance 123 mL/min (70-130); Calcium 9.1 mg/dL (7.8-10.44); Carbon Dioxide 20 mmol/L (22-29); Chloride 103 mmol/L (98-107); Estimated GFR 105; Glucose 85 mg/dL (70-105); Potassium 3.8 mmol/L (3.5-5.1); Sodium 133 mmol/L (136-145)
[2023-07-30 04:19] LABS: ALT (SGPT) 60 U/L (8-55); AST (SGOT) 99 U/L (5-34); Albumin 3.9 g/dL (3.5-5.0); Alkaline Phosphatase 74 U/L (40-110); Bilirubin, Direct 1.8 mg/dL (0.1-0.3); Protein, Total 7.3 g/dL (6.0-8.3)
[2023-07-30] MEDS ORDERED: Thiamine 100 MG TAB PO SCH (06:00)
[2023-07-30] MEDS: chlordiazePOXIDE HCl 25 MG CAP PO SCH (08:19)
[2023-07-30] MEDS: Multivit, Therapeutic 1 TAB PO SCH (08:19)
[2023-07-30 09:27] VITALS: BP 129/64; TEMP 98.1
[2023-07-30] MEDS ORDERED: Thiamine HCl 250 MG, Admixture Fee 1 EACH in Sodium Chloride 0.9% 50 ML IVPB SCH (17:00)
[2023-07-30] MEDS ORDERED: chlordiazePOXIDE HCl 25 MG CAP PO SCH (18:00)
[2023-07-31] MEDS ORDERED: Diazepam 5 MG TAB PO SCH (09:00)
[2023-07-31] MEDS ORDERED: chlordiazePOXIDE HCl 25 MG CAP PO SCH (21:00)
[2023-08-04] MEDS ORDERED: Thiamine HCl 200 MG/2 ML VIAL SLOW IVP SCH (17:00)
== END 2023-07-30 11:15 | disposition home or self-care (01) | DRG 896 ==
LOC: CSHERS 21:53 → CSHTELE 07-27 01:29
PROVIDERS: ADMIT Internal Medicine; ATTEND Internal Medicine
DX: F10.139 Alcohol abuse with withdrawal, unspecified (principal); G93.41 Metabolic encephalopathy; R44.3 Hallucinations, unspecified; F10.129 Alcohol abuse with intoxication, unspecified; I48.91 Unspecified atrial fibrillation; D64.9 Anemia, unspecified; K70.30 Alcoholic cirrhosis of liver without ascites; N18.9 Chronic kidney disease, unspecified; I10 Essential (primary) hypertension; R74.01 Elevation of levels of liver transaminase levels; E87.6 Hypokalemia; E83.42 Hypomagnesemia; R40.0 Somnolence; I95.9 Hypotension, unspecified; Z79.899 Other long term (current) drug therapy; Z71.41 Alcohol abuse counseling and surveillance of alcoholic
CPT/HCPCS: 36415; 70450; 71045; 74176; 80048; 80053; 80076; 80306; 80307; 81001; 82140; 82533; 82550; 82805; 83605; 83690; 83735; 83880; 84100; 84145; 84443; 84484; 85025; 85610; 85730; 87040; 93005; 93306; 94760; 94762; C9113; J2060; J2405; J3411; J3475; J3480; J3490; J7042; P9047

== ENCOUNTER 2023-08-14 13:54 | Emergency (ER) | payer BC ==
[2023-08-14] MEDS ORDERED: Ondansetron PF 4 MG/2 ML Vial ONE (14:44)
[2023-08-14] MEDS ORDERED: Pantoprazole 40 MG VIAL ONE (14:44)
[2023-08-14] MEDS ORDERED: Octreotide Acetate 50 MCG/ML AMP ONE (14:44)
[2023-08-14 14:53] LABS: #Eosinphils 0.11 10x3/uL (0.0-0.5); #Monocytes 0.94 10x3/uL (0.0-1.1); #Neutrophils 3.59 10x3/uL (1.5-8.4); %Basophils 2.7 % (0.0-2.0); %Eosinophils 1.5 % (0.0-6.0); %Lymphocytes 35.1 % (18.0-47.0); %Monocytes 12.5 % (0.0-10.0); %Neutrophils 47.7 % (40.0-75.0); Hematocrit 32.7 % (38.8-50.0); Mean Corpuscular HGB CONC 33.6 g/dL (32.0-36.0); Mean Corpuscular Hemoglobin 29.4 pg (27.0-33.0); Mean Corpuscular Volume 87.4 fL (81.2-95.1); Mean Platelet Volume 9.8 fL (7.4-10.4); Platelet Count 248 10x3/uL (150-450); RBC Distribution Width 20.3 % (11.5-14.5); Red Blood Cell (RBC) Count 3.74 10x6/uL (4.32-5.72); White Blood Cell (WBC) Count 7.5 10x3/uL (3.5-10.5)
[2023-08-14] MEDS ORDERED: OCTREOTIDE ACETATE IVPB SCH (15:00)
[2023-08-14] MEDS ORDERED: [UNRECOGNIZED DRUG - OTHER] IVPB SCH (15:00)
[2023-08-14] MEDS ORDERED: Octreotide Acetate 1,250 MCG, Admixture Fee 1 EACH in Sodium Chloride 0.9% 250 ML 250 ML IVPB SCH (15:00)
[2023-08-14] MEDS ORDERED: ADMIXTURE FEE IVPB SCH (15:00)
[2023-08-14] MEDS ORDERED: Pantoprazole 80 MG, Admixture Fee 1 EACH in Sodium Chloride 0.9% 100 ML IVPB SCH (15:00)
[2023-08-14 15:01] LABS: Acetaminophen Less than 10 mcg/mL (10.0-30.0); Alcohol 179.5 mg/dL (Less than 10); Lipase 84 U/L (8-78); Salicylate Less than 8.0 mg/dL (15.0-30.0)
[2023-08-14 15:02] LABS: ALT (SGPT) 30 U/L (8-55); AST (SGOT) 55 U/L (5-34); Albumin 3.5 g/dL (3.5-5.0); Alkaline Phosphatase 92 U/L (40-110); Anion Gap 17 mmol/L (10-20); BUN (Urea Nitrogen) 29 mg/dL (8.4-25.7); Bilirubin, Total 1.8 mg/dL (0.2-1.2); Calc. Creatinine Clearance 0 mL/min (70-130); Carbon Dioxide 22 mmol/L (22-29); Chloride 107 mmol/L (98-107); Estimated GFR 105; Globulin 3.7 g/dL (2.4-3.5); Glucose 121 mg/dL (70-105); Potassium 4.5 mmol/L (3.5-5.1); Protein, Total 7.2 g/dL (6.0-8.3); Sodium 141 mmol/L (136-145)
[2023-08-14 15:06] LABS: Troponin I Less than 0.010 ng/mL (< 0.028)
[2023-08-14 15:23] LABS: Magnesium 1.7 mg/dL (1.6-2.6)
[2023-08-14] MEDS ORDERED: Thiamine HCl 200 MG/2 ML VIAL ONE (15:39)
== END 2023-08-14 16:31 | disposition short-term general hospital (02) ==
LOC: CSHERS 13:54
DX: K92.2 Gastrointestinal hemorrhage, unspecified (principal)
CPT/HCPCS: 36430; 80053; 80307; 83605; 83690; 83735; 83880; 84100; 84484; 85025; 86850; 86900; 86901; 93005; C9113; J2354; J2405; J3411; J3490; J7050; P9016

== ENCOUNTER 2023-08-21 13:25 | Emergency (ER) | payer BC ==
[2023-08-21 14:59] LABS: ALT (SGPT) 26 U/L (8-55); AST (SGOT) 37 U/L (5-34); Albumin 3.3 g/dL (3.5-5.0); Alkaline Phosphatase 80 U/L (40-110); Anion Gap 13 mmol/L (10-20); BUN (Urea Nitrogen) 13 mg/dL (8.4-25.7); Bilirubin, Total 2.4 mg/dL (0.2-1.2); Calc. Creatinine Clearance 0 mL/min (70-130); Calcium 8.9 mg/dL (7.8-10.44); Carbon Dioxide 20 mmol/L (22-29); Chloride 108 mmol/L (98-107); Estimated GFR 102; Globulin 3.3 g/dL (2.4-3.5); Glucose 104 mg/dL (70-105); Potassium 4.2 mmol/L (3.5-5.1); Protein, Total 6.6 g/dL (6.0-8.3); Sodium 137 mmol/L (136-145); Troponin I Less than 0.010 ng/mL (< 0.028)
[2023-08-21 15:07] LABS: #Basophils 0.08 10x3/uL (0.0-0.2); #Eosinphils 0.29 10x3/uL (0.0-0.5); #Monocytes 1.19 10x3/uL (0.0-1.1); #Neutrophils 3.08 10x3/uL (1.5-8.4); %Basophils 1.3 % (0.0-2.0); %Eosinophils 4.7 % (0.0-6.0); %Lymphocytes 24.6 % (18.0-47.0); %Monocytes 19.1 % (0.0-10.0); %Neutrophils 49.5 % (40.0-75.0); Hematocrit 26.4 % (38.8-50.0); Hemoglobin 8.8 g/dL (13.5-17.5); Mean Corpuscular HGB CONC 33.3 g/dL (32.0-36.0); Mean Corpuscular Hemoglobin 30.4 pg (27.0-33.0); Mean Corpuscular Volume 91.3 fL (81.2-95.1); Mean Platelet Volume 10.4 fL (7.4-10.4); Platelet Count 193 10x3/uL (150-450); Red Blood Cell (RBC) Count 2.89 10x6/uL (4.32-5.72); White Blood Cell (WBC) Count 6.2 10x3/uL (3.5-10.5)
[2023-08-21 15:59] LABS: Troponin I 0.014 ng/mL (< 0.028)
== END 2023-08-21 16:10 | disposition home or self-care (01) ==
LOC: CSHERS 13:25
DX: K74.60 Unspecified cirrhosis of liver (principal); R00.1 Bradycardia, unspecified; R53.1 Weakness; R22.0 Localized swelling, mass and lump, head; D64.9 Anemia, unspecified; R79.89 Other specified abnormal findings of blood chemistry; I10 Essential (primary) hypertension; Z79.82 Long term (current) use of aspirin
CPT/HCPCS: 36415; 36416; 71045; 80053; 84484; 85025; 86850; 86900; 86901; 93005